=== PATIENT | female | born 1965 | race American Indian/Alaskan Native ===

== ENCOUNTER 2021-08-09 05:35 | Emergency (ER) | payer MEDICARE ==
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
[2021-08-09 07:41] VITALS: BP 112/80
== END 2021-08-09 07:43 | disposition home or self-care (01) ==
LOC: ED 05:35
DX: S39.012A Strain of muscle, fascia and tendon of lower back, initial encounter (principal); G44.319 Acute post-traumatic headache, not intractable; S80.02XA Contusion of left knee, initial encounter; X58.XXXA Exposure to other specified factors, initial encounter; Y93.89 Activity, other specified; Y92.89 Other specified places as the place of occurrence of the external cause; Y99.8 Other external cause status
CPT/HCPCS: 72100; 99283